=== PATIENT | female | born 1980 | race African-American/Black ===

== ENCOUNTER 2016-12-25 01:12 | Emergency (ER) | payer OTHER ==
[~2016-12-25] VITALS: Ht 167.6 cm; Wt 176.9 kg
[2016-12-25 01:14] VITALS: BP 137/86
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
[2016-12-25] MEDS ORDERED: KETOROLAC TROMETHAMINE 60 MG/2 ML INJ. IM ONE (01:45)
== END 2016-12-25 02:37 | disposition home or self-care (01) ==
LOC: ER 01:12
DX: G43.009 Migraine without aura, not intractable, without status migrainosus (principal); K21.9 Gastro-esophageal reflux disease without esophagitis; K58.9 Irritable bowel syndrome, unspecified; F20.9 Schizophrenia, unspecified; Z88.0 Allergy status to penicillin
CPT/HCPCS: 96372; 99283; J1885

== ENCOUNTER 2018-03-21 09:46 | Emergency (ER) | payer OTHER ==
[~2018-03-21] VITALS: Ht 167.6 cm; Wt 179.2 kg
[2018-03-21 10:14] VITALS: BP 155/91
[2018-03-21 10:37] LABS: BILIRUBIN,URINE NEGATIVE (NEG); CLARITY,URINE CLEAR; COLOR,URINE YELLOW; NITRITE,URINE NEGATIVE (NEG); PH,URINE 7.5; PROTEIN,URINE NEGATIVE (NEG-TRACE); UROBILINOGEN,URINE 0.2 mg/dL (0.2 mg/dL)
--- NOTE | 2018-03-21 10:42 | RAD ---
3 view lumbar spine 03/21/2018 CLINICAL INDICATION: Low back pain. COMPARISON: None. FINDINGS: Vertebral body heights and disc spaces are preserved. 5 nonrib-bearing lumbar-type vertebral bodies. Minimal upper lumbar spondylosis with osteophytic spurring at T12-L1 through L2-L3. There is minimal rightward spinal curvature, may be positional. No evidence of listhesis. IMPRESSION: Minimal upper lumbar spondylosis. Electronically signed by: Estrada Tyson MD (03/21/2018 10:38 AM) [facility]
--- NOTE | 2018-03-21 10:51 | PHYS DOC ---
Past Medical History Past Medical History: Anxiety, GERD, IBS, Migraines, Schizophrenia, Other Additional Past Medical Histor: Fatty liver Past Surgical History: Cholecystectomy, , Tubal ligation, Other Additional Past Surgical Histo: Alcohol Use: None Drug Use: None Adult General Chief Complaint Chief Complaint: LOWER BACK PAIN OR INJURY [facility] HPI Patient is a 37 year old [f__sex] who presents with [] Review of Systems Review of Systems Constitutional: Denies fever or chills [] Eyes: Denies change in visual acuity, redness, or eye pain [] HENT: Denies nasal congestion or sore throat [] Respiratory: Denies cough or shortness of breath [] Cardiovascular: No additional information not addressed in HPI [] GI: Denies abdominal pain, nausea, vomiting, bloody stools or diarrhea [] : Denies dysuria or hematuria [] Musculoskeletal: Denies back pain or joint pain [] Integument: Denies rash or skin lesions [] Neurologic: Denies headache, focal weakness or sensory changes [] Endocrine: Denies polyuria or polydipsia [] All other systems were reviewed and found to be within normal limits, except as documented in this note. Allergies Allergies Allergies Coded Allergies Type Severity Reaction Last Updated Verified Penicillins Allergy Severe anaphylaxis 12/25/16 Yes Physical Exam Physical Exam Constitutional: Well developed, well nourished, no acute distress, non-toxic appearance. [] HENT: Normocephalic, atraumatic, bilateral external ears normal, oropharynx moist, no oral exudates, nose normal. [] Eyes: PERRLA, EOMI, conjunctiva normal, no discharge. [] Neck: Normal range of motion, no tenderness, supple, no stridor. [] Cardiovascular:Heart rate regular rhythm, no murmur [] Lungs & Thorax: Bilateral breath sounds clear to auscultation [] Abdomen: Bowel sounds normal, soft, no tenderness, no masses, no pulsatile masses. [] Skin: Warm, dry, no erythema, no rash. [] Back: No tenderness, no CVA tenderness. [] Extremities: No tenderness, no cyanosis, no clubbing, ROM intact, no edema. [] Neurologic: Alert and oriented X 3, normal motor function, normal sensory function, no focal deficits noted. [] Psychologic: Affect normal, judgement normal, mood normal. [] Current Patient Data Vital Signs Vital Signs Date Time Temp Pulse Resp B/P (MAP) Pulse Ox O2 Delivery O2 Flow Rate FiO2 03/21/18 10:14 98.8 66 13 155/91 (112) 97 Room Air 98.8 Lab Values Laboratory Tests Test 03/21/18 10:10 03/21/18 10:12 Urine Collection Type Void Urine Color Yellow Urine Clarity Clear Urine pH 7.5 Urine Specific [place] 1.015 Urine Protein Negative mg/dL (NEG-TRACE) Urine Glucose (UA) Negative mg/dL (NEG) Urine Ketones (Stick) Negative mg/dL (NEG) Urine Blood Negative (NEG) Urine Nitrite Negative (NEG) Urine Bilirubin Negative (NEG) Urine Urobilinogen Dipstick 0.2 mg/dL (0.2 mg/dL) Urine Leukocyte Esterase Trace (NEG) Urine RBC 0 /HPF (0-2) Urine WBC Occ /HPF (0-4) Urine Squamous Epithelial Cells Few /LPF Urine Bacteria 0 /HPF (0-FEW) POC Urine HCG, Qualitative Hcg negative (Negative) EKG EKG [] Radiology/Procedures Radiology/Procedures []PATIENT: KAUR MENDOZA DACCOUNT: [id number]#: [id number] : 1980 LOCATION: ER AGE: 37 SEX: F EXAM STATUS: PRE ER ORD. PHYSICIAN: REBECCA ANTONIO APRN REASON: pain x 1 week PROCEDURE: LUMBAR SPINE 2-3V 3 view lumbar spine 03/21/2018 CLINICAL INDICATION: Low back pain. COMPARISON: None. FINDINGS: Vertebral body heights and disc spaces are preserved. 5 nonrib-bearing lumbar-type vertebral bodies. Minimal upper lumbar spondylosis with osteophytic spurring at T12-L1 through L2-L3. There is minimal rightward spinal curvature, may be positional. No evidence of listhesis. IMPRESSION: Minimal upper lumbar spondylosis. Electronically signed by: Raj Castro MD (03/21/2018 10:38 AM) [facility] DICTATED and SIGNED BY: RAJ CASTRO MD DATE: 03/21/18 1037 Course & Med Decision Making Course & Med Decision Making Pertinent Labs and Imaging studies reviewed. (See chart for details) [] Dragon Disclaimer Dragon Disclaimer This electronic medical record was generated, in whole or in part, using a voice recognition dictation system. Departure Departure Impression: Primary Impression: Back strain Disposition: HOME, SELF-CARE Condition: STABLE Referrals: NO PCP (PCP) Patient Instructions: Low Back Strain with Rehab[facility] Additional Instructions: Use the medication as directed to control your pain. After your pain that starts resolve start doing back exercises gradually to strengthen those muscles. Follow-up with your primary care provider for further evaluation of not improving in one week or return to the emergency department if worsening. Scripts Meloxicam (MOBIC) 7.5 Mg Tablet 1 TAB PO DAILY for pain, #15 TAB 1 Refill Prov: REBECCA ANTONIO APRN 03/21/18 REBECCA ANTONIO APRN Mar 21, 2018 10:51
[2018-03-21 11:09] LABS: BACTERIA,URINE 0 /HPF (0-FEW); RBC,URINE 0 /HPF (0-2); SQUAMOUS EPITHELIAL CELL,UR FEW /LPF; WBC,URINE OCC /HPF (0-4)
[2018-03-21] MEDS ORDERED: MELO7.5T5 PO (11:17)
== END 2018-03-21 11:38 | disposition home or self-care (01) ==
LOC: ER 09:46
DX: S39.012A Strain of muscle, fascia and tendon of lower back, initial encounter (principal); K21.9 Gastro-esophageal reflux disease without esophagitis; G43.909 Migraine, unspecified, not intractable, without status migrainosus; K58.9 Irritable bowel syndrome, unspecified; F20.9 Schizophrenia, unspecified; Z90.49 Acquired absence of other specified parts of digestive tract; Z98.51 Tubal ligation status; X58.XXXA Exposure to other specified factors, initial encounter; Y93.89 Activity, other specified; Y92.89 Other specified places as the place of occurrence of the external cause; Y99.8 Other external cause status
CPT/HCPCS: 72100; 81001; 81025; 87086; 99284-25

== ENCOUNTER 2018-08-29 11:03 | Emergency (ER) | payer OTHER ==
[~2018-08-29] VITALS: Ht 167.6 cm; Wt 176.9 kg
[~2018-08-29 11:03] MED LIST: MELO7.5T5 PO
[2018-08-29 11:22] VITALS: BP 150/74
[2018-08-29] MEDS ORDERED: PRED50TA PO (11:46)
--- NOTE | 2018-08-29 11:48 | PHYS DOC ---
Past Medical History Past Medical History: Anxiety, GERD, IBS, Migraines, Schizophrenia, Other Additional Past Medical Histor: Fatty liver Past Surgical History: Cholecystectomy, , Tubal ligation, Other Additional Past Surgical Histo: Alcohol Use: None Drug Use: None Adult General Chief Complaint Chief Complaint: LOWER BACK PAIN OR INJURY HPI HPI 37-year-old female presents to ER for complaints of chronic lower left back pain and left shoulder pain. Patient states she has increased pain with movements. She reports she's been taking Tylenol and ibuprofen with minimal relief in symptoms. Patient states she is on appointment scheduled at on Friday with her doctor. Patient denies numbness or tingling. Patient denies acute change in chronic pain. She denies any recent injury or falls. She denies urinary or vaginal symptoms. Patient states pain is similar to previous chronic pain- she reports she came to ER for medication to relieve her pain. Review of Systems Review of Systems Constitutional: Denies fever or chills [] Eyes: Denies change in visual acuity, redness, or eye pain [] HENT: Denies nasal congestion or sore throat [] Respiratory: Denies cough or shortness of breath [] Cardiovascular: Denies CP GI: Denies abdominal pain, nausea, vomiting, bloody stools or diarrhea [] : Denies dysuria or hematuria. Denies vaginal sxs Musculoskeletal: Reports chronic lt shoulder/lt lower back pain- denies acute changes or recent injuries Integument: Denies rash or skin lesions [] Neurologic: Denies headache, focal weakness or sensory changes. Denies dizziness Endocrine: Denies polyuria or polydipsia [] All other systems were reviewed and found to be within normal limits, except as documented in this note. Current Medications Current Medications Current Medications Medications (Trade) Dose Ordered Sig/Kathi Start Time Stop Time Status Last Admin Dose Admin Lidocaine (Lidoderm) 1 patch 1X ONCE 08/29/18 12:08/29/18 12:01 DC 08/29/18 12:00 1 PATCH Prednisone (Prednisone) 50 mg 1X ONCE 08/29/18 12:00 08/29/18 12:01 DC 08/29/18 12:00 50 MG Allergies Allergies Allergies Coded Allergies Type Severity Reaction Last Updated Verified Penicillins Allergy Severe anaphylaxis 12/25/16 Yes Physical Exam Physical Exam Constitutional: Well developed, well nourished, no acute distress, non-toxic appearance. [] HENT: Normocephalic, atraumatic, oropharynx moist, nose normal. [] Eyes: Pupils equal, conjunctiva normal, no discharge. [] Neck: Normal range of motion, no tenderness/crepitus, supple, no stridor. [] Cardiovascular: Heart rate regular rhythm, no murmur [] Lungs & Thorax: Bilateral breath sounds clear to auscultation- resp. equal/nonlabored Abdomen: Bowel sounds normal, soft/obese, no tenderness Skin: Warm, dry, no erythema, no rash. [] Back:Tender lt lower back into mid rt buttock- full ROM, no CVA tenderness. [] Extremities: No cyanosis, no clubbing, ROM intact, no edema. Tender lt anterior shoulder- no palp. deformity/crepitus. 2+ bilat. radial. 2+ bilat dorsalis pedis/posterior tibial. During exam pt is reaching behind her with bilat. arms grabbing onto the chair. She is repositioning herself on chair with no facial grimacing. Neurologic: Alert and oriented X 3, normal motor function, normal sensory function, no focal deficits noted. [] Psychologic: Affect normal, judgement normal, mood normal. [] Current Patient Data Vital Signs Vital Signs Date Time Temp Pulse Resp B/P (MAP) Pulse Ox O2 Delivery O2 Flow Rate FiO2 08/29/18 11:22 98.0 96 16 150/74 (99) 96 Room Air 98.0 EKG EKG [] Radiology/Procedures Radiology/Procedures [] Course & Med Decision Making Course & Med Decision Making In-depth conversation had with patient regarding chronic pain and management which needed to be done by her primary care physician versus the emergency department. Patient during exam has full range of motion of bilateral upper extremities and had steady unassisted gait in the ER. Pt denied any urinary or vaginal symptoms. Patient states her bowel movements have been regular. Pt has scheduled appointment on Friday which she was strongly advised to keep for further care and chronic management of her ongoing pain. Lidoderm patch will be placed to focal area of tenderness left shoulder she preferred no Lidoderm patch to left lower back. Patient was offered sling application to left upper extremity for additional treatment. Patient refuses sling. Patient was agreeable to dose of prednisone while in the ER and prescription will be provided for both Lidoderm patches and prednisone with discharge paperwork. Patient is in no visible distress during discharge discussion. She was PMS intact in all extremities. Charge instructions were discussed and patient was educated on signs and symptoms to return to ER for. [] Dragon Disclaimer Dragon Disclaimer This electronic medical record was generated, in whole or in part, using a voice recognition dictation system. Departure Departure Impression: Primary Impression: Chronic back pain Additional Impression: Musculoskeletal pain of left upper extremity Disposition: HOME, SELF-CARE Condition: STABLE Referrals: UNKNOWN PCP NAME (PCP) Patient Instructions: Chronic Back Pain, Musculoskeletal Pain Additional Instructions: Continue [id number] Tylenol and/or ibuprofen as needed for pain as directed on container. Ice and/or heat compress to affected area every 3-4 hours for 20-30 minutes at a time avoid direct ice contact with skin. Keep your scheduled appointment this week to discuss your chronic pain and discuss options for treatments. You were offered arm sling for support your left arm which may also improve your pain- this is something you can buy and try for pain relief. You are being provided with a prescription for Lidoderm patches which can be applied every 12 hours to area of pain as needed. Remove after 12 hours. Scripts Prednisone (PREDNISONE) 50 Mg Tablet 1 TAB PO DAILY, #4 TAB 0 Refills Start 08/30/18 Prov: ALEK THOMPSON APRN 08/29/18 Problem Qualifiers ALEK THOMPSON APRN August 29, 2018 11:48
[2018-08-29] MEDS ORDERED: LIDOCAINE (700MG/PATCH) PATCH. TD ONE (12:00)
[2018-08-29] MEDS ORDERED: predniSONE 10 MG TABLET PO ONE (12:00)
== END 2018-08-29 12:08 | disposition home or self-care (01) ==
LOC: ER 11:03
DX: G89.29 Other chronic pain (principal); M54.5 Low back pain; M25.512 Pain in left shoulder; M79.602 Pain in left arm; K21.9 Gastro-esophageal reflux disease without esophagitis; G43.909 Migraine, unspecified, not intractable, without status migrainosus; K58.9 Irritable bowel syndrome, unspecified; F20.9 Schizophrenia, unspecified; F41.9 Anxiety disorder, unspecified; Z98.51 Tubal ligation status; Z90.49 Acquired absence of other specified parts of digestive tract; Z88.0 Allergy status to penicillin
CPT/HCPCS: 99283; J7512